=== PATIENT | male | born 1995 | race American Indian/Alaskan Native ===

== ENCOUNTER 2021-06-07 18:02 | Emergency (ER) | payer SELFPAY ==
--- NOTE | 2021-06-07 20:55 | Emergency Department Report ---
ED General Adult HPI - General Chief complaint: Laceration/Recheck/Suture Stated complaint: RT FOOT INJURY Source: patient Mode of arrival: Ambulatory Limitations: No Limitations - History of Present Illness Initial comments: 26-year-old male presents to the ED with complaint of ulcers to the right foot. Patient states that he wears steel toe boot and the back of the boot has been rubbing his heel. Patient has also noted to the right heel. Erythema without any drainage noted. Patient is alert and oriented x3. No acute distress noted. Patient able to ambulate without any difficulty. No edema noted. No Distracting injury noted.No obvious deformity noted. - Related Data Previous Rx's Medication Instructions Recorded Last Taken Type Mupirocin [Bactroban 2%] 1 applic TP TID #1 tube 06/07/21 Unknown Rx Sulfamethoxazole/Trimethoprim 1 each PO BID 10 Days #20 tab 06/07/21 Unknown Rx [Bactrim DS TAB] Allergies Allergy/AdvReac Type Severity Reaction Status Date / Time No Known Allergies Allergy Verified 06/07/21 18:10 ED Review of Systems ROS: Stated complaint: RT FOOT INJURY Other details as noted in HPI Constitutional: denies: chills, fever Eyes: denies: eye pain, eye discharge, vision change ENT: denies: ear pain, throat pain Respiratory: denies: cough, shortness of breath, wheezing Cardiovascular: denies: chest pain, palpitations Endocrine: no symptoms reported Gastrointestinal: denies: abdominal pain, nausea, diarrhea Genitourinary: denies: urgency, dysuria Musculoskeletal: denies: back pain, joint swelling, arthralgia Skin: other (ulcer to right heel ). denies: rash, lesions Neurological: denies: headache, weakness, paresthesias Psychiatric: denies: anxiety, depression Hematological/Lymphatic: denies: easy bleeding, easy bruising ED Past Medical Hx - Medications Home Medications: Home Medications Medication Instructions Recorded Confirmed Last Taken Type Mupirocin [Bactroban 2%] 1 applic TP TID #1 tube 06/07/21 Unknown Rx Sulfamethoxazole/Trimethoprim 1 each PO BID 10 Days #20 tab 06/07/21 Unknown Rx [Bactrim DS TAB] ED Physical Exam - General Limitations: No Limitations General appearance: alert, in no apparent distress - Head Head exam: Present: atraumatic, normocephalic - Eye Eye exam: Present: normal appearance - ENT ENT exam: Present: mucous membranes moist - Neck Neck exam: Present: normal inspection - Respiratory Respiratory exam: Present: normal lung sounds bilaterally. Absent: respiratory distress - Cardiovascular Cardiovascular Exam: Present: regular rate, normal rhythm. Absent: systolic murmur, diastolic murmur, rubs, gallop - GI/Abdominal GI/Abdominal exam: Present: soft, normal bowel sounds - Rectal Rectal exam: Present: deferred - Extremities Exam Extremities exam: Present: normal inspection - Back Exam Back exam: Present: normal inspection - Neurological Exam Neurological exam: Present: alert, oriented X3 - Psychiatric Psychiatric exam: Present: normal affect, normal mood - Skin Skin exam: Present: warm, dry, intact, normal color. Absent: rash ED Course Vital Signs 06/07/21 18:11 Temperature 98.6 F Pulse Rate 111 H Respiratory 18 Rate Blood Pressure 166/98 O2 Sat by Pulse 98 Oximetry ED Medical Decision Making - Radiology Data [facility] [address] [place] [address] XRay Report Signed Patient: JULIETA GALAVIZ MR#: [id number] 3 : 1995 Acct:[id number] Age/Sex: 26 / M ADM Date: 06/07/21 Loc: ED Attending Dr: Ordering Physician: MAI DISLA MD Date of Service: 06/07/21 Procedure(s): XR foot 2V RT Accession Number(s): [id number] cc: MAI DISLA MD Fluoro Time In Minutes: RIGHT FOOT 2 VIEW(S) INDICATION / CLINICAL INFORMATION: pain COMPARISON: None available. FINDINGS: BONES / JOINT(S): No acute fracture or subluxation. No significant arthritis. SOFT TISSUES: No significant abnormality. No radiopaque foreign body. ADDITIONAL FINDINGS: None. Signer Name: Parish Gomes MD Signed: 06/07/2021 9:01 PM Workstation Name: [id number] Transcribed By: SB Dictated By: PARISH GOMES MD Electronically Authenticated By: PARISH GOMES MD Signed Date/Time: 06/07/212100 DD/ 00 TD/TT: Print Cancel - Medical Decision Making 26-year-old male presents to the ED with complaint of ulcers to the right foot. Patient states that he wears steel toe boot and the back of the boot has been rubbing his heel. Patient has also noted to the right heel. Erythema without any drainage noted. Patient is alert and oriented x3. No acute distress noted. Patient able to ambulate without any difficulty. No edema noted. No Distracting injury noted.No obvious deformity noted. Physical examination she will also noted to the back of right heel with erythema no drainage noted from the site. Start patient on antibiotic therapy. Patient to follow-up with primary care doctor. Right foot x-ray shows no abnormality Rechecked the patient is resting quietly quietly and comfortable and feeling better. I discussed the results of diagnostic study, my clinical impression and the plan for further treatment with the patient. Patient agrees with plan and discharge at this present time. All question addressed. I have given the patient instruction regarding a diagnosis ,expectation ,follow- up and return precaution. I explained to the patient that emergent condition may arise and to return to the ED for new worsen and any new persisting condition. I have explained the importance of following up with the primary care physician or referral physician listed below has instructed. The patient verbalized understanding of discharge instruction. Critical care attestation.: If time is entered above; I have spent that time in minutes in the direct care of this critically ill patient, excluding procedure time. ED Disposition Clinical Impression: Right foot ulcer Qualifiers: Non-pressure ulcer stage: unspecified non-pressure ulcer stage Qualified Code(s): L97.519 - Non-pressure chronic ulcer of other part of right foot with unspecified severity Disposition: 01 HOME / SELF CARE / HOMELESS Is pt being admited?: No Does the pt Need Aspirin: No Condition: Stable Instructions: Venous Ulcer Additional Instructions: Take medication as prescribed Return to ED for any worsening symptom Prescriptions: Sulfamethoxazole/Trimethoprim [Bactrim DS TAB] 1 each PO BID 10 Days #20 tab Mupirocin [Bactroban 2%] 1 applic TP TID #1 tube Referrals: [facility] [Provider Group] - 3-5 Days Forms: Work/School Release Form(ED)
--- NOTE | 2021-06-07 21:05 | XRay Report ---
RIGHT FOOT 2 VIEW(S) INDICATION / CLINICAL INFORMATION: pain COMPARISON: None available. FINDINGS: BONES / JOINT(S): No acute fracture or subluxation. No significant arthritis. SOFT TISSUES: No significant abnormality. No radiopaque foreign body. ADDITIONAL FINDINGS: None. Signer Name: Parish Beasley MD Signed: 06/07/2021 9:01 PM Workstation Name: [id number]
[2021-06-07 22:13] VITALS: BP 154/99
== END 2021-06-07 22:13 | disposition home or self-care (01) ==
LOC: ED 18:02
DX: L97.519 Non-pressure chronic ulcer of other part of right foot with unspecified severity (principal)
CPT/HCPCS: 99283